=== PATIENT | female | born 1975 ===

== ENCOUNTER 2017-03-22 17:22 | Emergency (ER) | payer SELFPAY ==
[2017-03-22 17:43] VITALS: BP 106/58
--- NOTE | 2017-03-22 19:05 | UC ---
Hollie Dowling Gabriel, scribed for Jesika Azevedo MD on 03/22/17 at 1817 . General HPI - HPI Summary HPI Summary: This patient is a 41 year old F presenting to [facility] with a chief complaint of a general illness that began 2 weeks ago but has gotten worse recently. Originally she reports a fever, body aches, and a productive cough. Pt states she thinks she had the flu. Pt states since this time has had progressive bilateral ear pain, sore throat, yellow nasal discharge, and a nonproductive cough. The patient rates the pain 6/10 in severity. She has had positive exposure to sick children but their symptoms have resolved. Pt states has tried homeopathic treatments without improvement. Pt took Motrin last night with improvement last night. No other OTC meds. Her LNMP began on 02/28/17. She took ibuprofen last night before bed. Pt's medication reviewed this visit - History of Current Complaint Chief Complaint: UCGeneralIllness Stated Complaint: COUGH,ST,EAR PAIN Time Seen by Provider: 03/22/17 17:44 Hx Obtained From: Patient Hx Last Menstrual Period: 02/28/17 Onset/Duration: Lasting Days - worse in last 3 days, Lasting Weeks - 2 Timing: Constant Onset Severity: Moderate Current Severity: Mild Pain Intensity: 6 Pain Location at: ear and throat Associated Signs & Symptoms: Positive: Fever, Other - bilateral ear pain, sore throat, yellow nasal discharge, and a nonproductive cough - Allergy/Home Medications Allergies/Adverse Reactions: Allergies Allergy/AdvReac Type Severity Reaction Status Date / Time Iodine Allergy Anaphylatic Verified 03/22/17 17:33 Shock Povidone Iodine Allergy Hives Verified 03/22/17 17:33 [From Betadine] PMH/Surg Hx/FS Hx/Imm Hx Previously Healthy: Yes Other History Of: Negative For: HIV, Hepatitis B, Hepatitis C - Surgical History Surgical History: Yes Surgery Procedure, Year, and Place: tubal ligation 2005. ganglion cysts removal - Family History Known Family History: Negative: Hypertension, Diabetes, Renal Disease, Respiratory Disease, Seizure Disorder - Social History Occupation: Employed Full-time Lives: With Family Alcohol Use: Weekly Substance Use Type: None Smoking Status (MU): Never Smoked Tobacco - Immunization History Most Recent Influenza Vaccination: never Review of Systems Constitutional: Fever - that has resolved ENT: Sore Throat, Ear Ache, Nasal Discharge - yellow Respiratory: Cough Musculoskeletal: Myalgia - that has resolved All Other Systems Reviewed And Are Negative: Yes Physical Exam Triage Information Reviewed: Yes Appearance: Well-Appearing, No Pain Distress, Well-Nourished Vital Signs: Initial Vital Signs Temp 98.8 F 03/22/17 17:34 Pulse 58 03/22/17 17:34 Resp 18 03/22/17 17:34 BP 106/58 03/22/17 17:34 Pulse Ox 100 03/22/17 17:34 Vital Signs Reviewed: Yes Eye Exam: Normal Eyes: Positive: Conjunctiva Clear ENT Exam: Normal ENT: Positive: Hearing grossly normal, Nasal congestion, Other - fluid left ear. no erythema no retractions. turbinates inflammed and boggy + PND uvula midline no erythema, no exudate Neck exam: Normal Neck: Positive: Supple, Nontender Respiratory Exam: Normal Respiratory: Positive: Chest non-tender, Lungs clear, Normal breath sounds, No respiratory distress, No accessory muscle use, Other: - mild intermittent cough Cardiovascular Exam: Normal Cardiovascular: Positive: RRR, No Murmur Abdominal Exam: Normal Abdomen Description: Positive: Nontender, No Organomegaly, Soft Bowel Sounds: Positive: Present Musculoskeletal Exam: Normal Musculoskeletal: Positive: Strength Intact Neurological Exam: Normal Neurological: Positive: Alert Psychological Exam: Normal Psychological: Positive: Normal Response To Family Skin Exam: Normal Course/Dx - Course Course Of Treatment: Pt presents with sinus congestion, progressive ear pain, and cough since likely flu 2 weeks ago. Pt has tried symptomatic tx / holistic tx without improvement. on exam pt with sinus congestion and fluid in left ear. strep neg. will give abx, cough med. secretion precaution. hydrate. motrina/apap. Pt comfortable and in agreement with plan - Differential Dx - Multi-Symptom Provider Diagnoses: sinusitis. cough Discharge - Discharge Plan Condition: Stable Disposition: HOME Prescriptions: Amoxicillin/Clavulanate TAB* [Augmentin TAB 875*] 875 mg PO BID #20 tab Guaifenesin 200 mg PO Q8HR PRN #15 tab PRN Reason: Cough Patient Education Materials: Rhinosinusitis (ED) Referrals: [facility] [Outside] No Primary Care Phys,NOPCP [Primary Care Provider] - Additional Instructions: - stay well hydrated. Drink plenty of non-alcoholic, non-caffinated beverages - Take antibiotics as prescribed until gone - you have been given prescription for cough - okay to take as prescribed - - After you have been on antibiotics for 2 days - change your toothbrush and your pillowcase. These infections are spread by secretions - do NOT share eating or drinking utensils - clean items you share with other people such as cell phones, computer mouse, TV remote, computer tablets, etc - humidify the air where you sleep - get plenty of restful sleep - Contact your doctor to schedule a follow-up appointment. Contact your doctor or return with questions or concerns The documentation as recorded by the Hollie chew Gabriel accurately reflects the service I personally performed and the decisions made by me, Jesika Azevedo MD.
== END 2017-03-22 18:32 | disposition home or self-care (01) ==
LOC: UCEAST 17:22
DX: J32.9 Chronic sinusitis, unspecified (principal); R05 Cough; H92.03 Otalgia, bilateral; J02.9 Acute pharyngitis, unspecified
CPT/HCPCS: 87651; 99212; G0463

== ENCOUNTER 2018-04-14 10:58 | Emergency (ER) | payer OTHER ==
[2018-04-14 11:05] VITALS: BP 124/63
--- NOTE | 2018-04-14 11:24 | UC ---
Respiratory Complaint HPI - HPI Summary HPI Summary: 1 WEEK OF COUGH, CONGESTION, MALAISE AND SCRATCHY THROAT. DENIES FEVER, NAUSEA/ VOMITING OR EAR PAIN. HAS BEEN USING HERBAL TREATMENTS WITH NO IMPROVEMENT IN SYMPTOMS. STATES SHE GETS IT EVERY MARCH. - History of Current Complaint Chief Complaint: UCRespiratory Stated Complaint: URI Time Seen by Provider: 04/14/18 11:03 Hx Obtained From: Patient Hx Last Menstrual Period: 04/03/18 Onset/Duration: Gradual Onset, Lasting Days, Still Present Timing: Constant Severity Initially: Moderate Severity Currently: Moderate Pain Intensity: 5 Pain Scale Used: 0-10 Numeric Character: Cough: Nonproductive Aggravating Factors: Nothing Alleviating Factors: Nothing Associated Signs And Symptoms: Positive: URI, Nasal Congestion. Negative: Dyspnea, Fever, Chills, Wheezing - Allergies/Home Medications Allergies/Adverse Reactions: Allergies Allergy/AdvReac Type Severity Reaction Status Date / Time Iodine and Iodide Containing Allergy Hives Verified 04/14/18 11:05 Produc povidone-iodine Allergy Hives Verified 04/14/18 11:05 [From Betadine] soap [From Betadine] Allergy Hives Verified 04/14/18 11:05 PMH/Surg Hx/FS Hx/Imm Hx Respiratory History: Asthma Other History Of: Negative For: HIV, Hepatitis B, Hepatitis C - Surgical History Surgical History: Yes Surgery Procedure, Year, and Place: tubal ligation 2005. ganglion cysts removal - Family History Known Family History: Negative: Hypertension, Diabetes, Renal Disease, Respiratory Disease, Seizure Disorder - Social History Alcohol Use: Weekly Substance Use Type: None Smoking Status (MU): Never Smoked Tobacco - Immunization History Most Recent Influenza Vaccination: never Review of Systems All Other Systems Reviewed And Are Negative: Yes Constitutional: Positive: Fatigue ENT: Positive: Sore Throat, Nasal Discharge Respiratory: Positive: Cough Cardiovascular: Positive: Negative Gastrointestinal: Positive: Negative Physical Exam Triage Information Reviewed: Yes Appearance: Well-Appearing, No Pain Distress, Well-Nourished Vital Signs: Initial Vital Signs Temp 98.1 F 04/14/18 11:01 Pulse 72 04/14/18 11:01 Resp 16 04/14/18 11:01 BP 124/63 04/14/18 11:01 Pulse Ox 100 04/14/18 11:01 Vital Signs Reviewed: Yes Eyes: Positive: Conjunctiva Clear ENT: Positive: Hearing grossly normal, Pharynx normal, TMs normal Neck: Positive: Supple, Nontender, No Lymphadenopathy Respiratory Exam: Normal Cardiovascular Exam: Normal Abdomen Description: Positive: Soft Musculoskeletal: Positive: No Edema Neurological: Positive: Alert Psychological: Positive: Age Appropriate Behavior Skin: Positive: Other - Cluster of spider veins right camp with some surrounding discoloration. Not tender. Slightly flaky. Diagnostic Evaluation - Laboratory O2 Sat by Pulse Oximetry: 100 Respiratory Course/Dx - Course Course Of Treatment: LIKELY VIRAL ETIOLOGY OF UPPER RESPIRATORY SYMPTOMS. DISCUSSED WITH PATIENT THAT ANTIBIOTICS ARE NOT INDICATED AT THIS TIME. PATIENT REQUESTING AN ANTIBIOTIC THAT SHE CAN TAKE LATER IF SHE DOES NOT IMPROVE. PEYMAN SENT TO PHARMACY. 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 SHE IS REQUESTING DERMATOLOGY REFERRAL. - Differential Dx/Diagnosis Provider Diagnosis: Acute URI Discharge - Sign-Out/Discharge Documenting (check all that apply): Patient Departure All imaging exams completed and their final reports reviewed: No Studies - Discharge Plan Condition: Stable Disposition: HOME Prescriptions: Azithromycin 500 mg PO DAILY #5 tab Patient Education Materials: Upper Respiratory Infection (ED) Forms: *Work Release Referrals: [facility] [Outside] - If Needed Additional Instructions: YOUR SYMPTOMS ARE LIKELY VIRALLY MEDIATED AND SHOULD RESOLVE ON THEIR OWN WITH TIME. NO INDICATION FOR ANTIBIOTICS AT PRESENT. REST, HYDRATE, OTC MEDS NEEDED. IF YOU ARE NOT IMPROVING OVER THE NEXT 1-2 WEEKS GO AHEAD AND FILL RX FOR ANTIBIOTIC. IF YOU START THE MEDICINE TAKE IT FOR THE FULL COURSE TO HELP PREVENT DEVELOPING RESISTANCE. CALL THE NUMBER BELOW FOR ASSISTANCE IN ESTABLISHING WITH A PCP An additional resource available to assist in finding the appropriate physician for your health care needs is the [facility] Referral Center (Kiki Stewart). You may contact them by calling [phone]. DERMATOLOGY IN [place] DR. PK CHIANG [facility], [facility] [address]; [address] [place] [address] Dr. Kalyn Childs Address: [address] [place] [address] [address] [place] [address] DR. SOCO GARCIA [facility] [address] [place], [place] [id number] DERMATOLOGY IN [place] Dr. Kia Garcia DERMATOLOGY IN [place] DR. THONY LADD [phone] - [facility] Disposition and Condition Condition: STABLE Disposition: Home
== END 2018-04-14 11:25 | disposition home or self-care (01) ==
LOC: UCEAST 10:58
DX: J06.9 Acute upper respiratory infection, unspecified (principal); J45.909 Unspecified asthma, uncomplicated; Z88.8 Allergy status to other drugs, medicaments and biological substances
CPT/HCPCS: 99212; G0463

== ENCOUNTER 2019-07-05 08:42 | Emergency (ER) | payer OTHER ==
[2019-07-05 09:03] VITALS: BP 102/54
--- NOTE | 2019-07-05 10:36 | UC ---
Abdominal Pain Female HPI - HPI Summary HPI Summary: 43-year-old woman comes in with a chief complaint of lower abdominal pain. This morning she experienced about 20 minutes of 8-9 out of 10 suprapubic pain while still lying in bed. Now the pain is about a 1 out of 10. No fevers measured. Patient's last menstrual period was 2 weeks ago. Denies any abnormal vaginal discharge or concern of STI. Urination has been normal. Has not had any flank pain. Patient has had a tubal ligation in the past no other abdominal surgeries. Reports normal bowel movements. Patient's periods have been irregular over the last couple of years. Her last period 2 weeks ago was tobacco sweeper than usual.. Prior to that is 3-4 weeks prior to the last period was longer and heavier than usual and more painful than usual. Patient has had intermittent sore throat and generalized joint aches for several weeks. Reports the sore throat is mild. Rhinorrhea is clear. No cough or chest congestion or shortness of breath. Patient reports a negative Covid test about one week ago. Last several weeks her appetite has been less which she believes is due to stress. 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 She did have a tick bite about one week ago on her left hip. She believes the tick was only attached for couple of hours. No rash. Patient has been having intermittent left lower and right lower quadrant pelvic pain but usually only last a minute or 2 are not as severe as this morning's intensity. - History of Current Complaint Chief Complaint: UCAbdominalPain Stated Complaint: LOWER ABDOMINAL PAIN Time Seen by Provider: 07/05/19 08:58 Hx Last Menstrual Period: two weeks ago, light Pain Intensity: 1 Allergies/Adverse Reactions: Allergies Allergy/AdvReac Type Severity Reaction Status Date / Time Iodine and Iodide Containing Allergy Hives Verified 07/05/19 08:54 Produc mold Allergy Airway Verified 07/05/19 08:54 Obstruction povidone-iodine Allergy Hives Verified 07/05/19 08:54 [From Betadine] soap [From Betadine] Allergy Hives Verified 07/05/19 08:54 pet dander Allergy Difficulty Uncoded 07/05/19 08:54 Breathing Home Medications: Home Medications Calcium Carbonate [Calcium] 1 tab PO DAILY 07/05/19 [History Confirmed 07/05/19] Cholecalciferol (Vitamin D3) [Vitamin D3] 1 tab PO DAILY 07/05/19 [History Confirmed 07/05/19] Ferrous Sulfate TAB* 1 tab PO BID 07/05/19 [History Confirmed 07/05/19] Ibuprofen 200 mg PO ONCE PRN 07/05/19 [History Confirmed 07/05/19] Magnesium 1 tab PO DAILY 07/05/19 [History Confirmed 07/05/19] Vitamin B Complex [Super B-50 Complex] 1 tab PO DAILY 07/05/19 [History Confirmed 07/05/19] PMH/Surg Hx/FS Hx/Imm Hx Previously Healthy: Yes Other History Of: Negative For: HIV, Hepatitis B, Hepatitis C - Surgical History Surgical History: Yes Surgery Procedure, Year, and Place: tubal ligation 2005. ganglion cysts removal - Family History Known Family History: Negative: Hypertension, Diabetes, Renal Disease, Respiratory Disease, Seizure Disorder - Social History Alcohol Use: Weekly Substance Use Type: None Smoking Status (MU): Never Smoked Tobacco - Immunization History Most Recent Influenza Vaccination: never Review of Systems All Other Systems Reviewed And Are Negative: Yes Constitutional: Positive: Other - SEE HPI Skin: Positive: Other - SEE HPI Eyes: Positive: Negative ENT: Positive: Sore Throat Respiratory: Positive: Negative Cardiovascular: Positive: Negative Gastrointestinal: Positive: Abdominal Pain - SEE HPI Genitourinary: Positive: Negative Motor: Positive: Negative Neurovascular: Positive: Negative Musculoskeletal: Positive: Other: - SEE HPI Neurological/Mental Status: Positive: Negative Psychological: Positive: Negative Is Patient Immunocompromised?: No Physical Exam Triage Information Reviewed: Yes Appearance: Well-Appearing, No Pain Distress, Well-Nourished Vital Signs: Initial Vital Signs Temp 99.5 F 07/05/19 08:48 Pulse 68 07/05/19 08:48 Resp 18 07/05/19 08:48 BP 102/54 07/05/19 08:48 Pulse Ox 97 07/05/19 08:48 Vital Signs Reviewed: Yes Eye Exam: Normal Eyes: Positive: Conjunctiva Clear ENT: Positive: Pharynx normal Neck: Positive: Supple Respiratory: Positive: Lungs clear, Normal breath sounds, No respiratory distress Cardiovascular: Positive: RRR Abdomen Description: Positive: Other: - Negative heel strike. Mild increase in the suprapubic pain with flexion of the right hip with internal rotation. Positive bowel sounds. Mild tenderness to palpation right lower quadrant and left lower quadrant and the patient reports that that increases the pain in the suprapubic area. Patient is tender to palpation in the suprapubic area. Nontender in the right upper quadrant left upper quadrant or epigastrium. Bowel Sounds: Positive: Present Musculoskeletal: Positive: Strength Intact, ROM Intact Neurological: Positive: Alert, Muscle Tone Normal Psychological: Positive: Age Appropriate Behavior Skin Exam: Normal - On the left hip where the tick bite was there is no rash. Abd Pain Female Course/Dx - Course Course Of Treatment: Vamp Seamer: Ravindra Mata Daniel ([id number]) Crowd Controller: CARLIN ( NUANCE) Report Date: 07/05/2019 11:13:00 Report Status: Final ====== Start of Report Content Patient Name: PK EARL Ordering Physician: David Campo MD : 1975 Age: 43 Sex: F Location: [facility] Exam Date: 0935 ADM Status: REG ER Observation Date/Time: Order Information: US PELVIC Accession Number: [id number] CPT: 19112 HISTORY: suprapubic pain COMPARISONS: August 29, 2018 TECHNIQUE: Multiple transverse and longitudinal ultrasound images were obtained of the pelvis using grayscale, color Doppler, and spectral Doppler imaging using the transabdominal transducer. FINDINGS: UTERUS: The uterus measures 9.8 cm x 4.5 cm x 6.0 cm. The uterus is normal in shape, size, contour, and echotexture. ENDOMETRIUM: The endometrial stripe is smooth. The endometrium measures 1.3 cm in thickness. CUL-DE-SAC: There is a small amount of simple fluid within the cul-de-sac. This may be physiologic in a reproductive age female. RIGHT OVARY: The right ovary measures 2.6 cm x 3.3 cm x 4.9 cm. Normal arterial and venous waveforms are identifiable within the ovary on spectral Doppler imaging. There is a 3.3 x 1.4 x 2.4 cm echogenic cystic lesion LEFT OVARY: The left ovary measures 2.2 cm x 2.6 cm x 3.3 cm. Multiple follicles noted. Normal arterial and venous waveforms are identifiable within the ovary on spectral Doppler imaging. BLADDER: The visualized bladder is unremarkable. OTHER: None IMPRESSION: 1. SMALL AMOUNT OF FREE FLUID WITHIN THE CUL-DE-SAC. THIS MAY BE PHYSIOLOGIC WITHIN A REPRODUCTIVE AGE FEMALE. 2. ECHOGENIC CYSTIC LESION OF THE RIGHT OVARY MEASURING 3.3 CM. THE DIFFERENTIAL INCLUDES A HEMORRHAGIC CYST. RECOMMEND FOLLOW-UP IMAGING IN 6 WEEKS-12 WEEKS TO DOCUMENT RESOLUTION. 3. NO SONOGRAPHIC FEATURES OF TORSION. PLEASE NOTE THAT PARTIAL OR INTERMITTENT TORSION MAY BE SONOGRAPHICALLY NORMAL. . <Electronically signed by Ravindra Mata MD in OV> 07/05/19 110 Dictated By: Ravindra Mata MD Dictated Date/Time: 07/05/191106 Transcribed Date/Time: 07/05/191106 Copy to: CC:Ravindra Mata MD; No Primary Care Phys,NOPCP ; David Campo MD Imaging - [facility] Imaging - [facility] Imaging - [facility] [address] [address] ph ([phone]) ph ([phone]) ph ) End of Report Content Vamp Seamer: Ravindra Mata Daniel, ([id number]) Crowd Controller: CARLIN ( NUANCE) Report Date: 07/05/2019 11:07:00 Report Status: Final ====== Start of Report Content Patient Name: PK EARL Ordering Physician: David Campo MD : 1975 Age: 43 Sex: F Location: [facility] Exam Date: 35 ADM Status: REG ER Observation Date/Time: Order Information: US APPENDIX Accession Number: [id number] CPT: 63367 HISTORY: suprapubic pain COMPARISONS: None TECHNIQUE: Multiple transverse and longitudinal ultrasound images were obtained of the right lower quadrant using grayscale and color Doppler imaging. FINDINGS: The appendix is not visualized. There is a small amount of simple fluid noted within the pelvic cul-de-sac and right lower quadrant. There are no loculated fluid collections. IMPRESSION: THE APPENDIX IS NOT VISUALIZED. THERE IS A SMALL AMOUNT OF FREE FLUID WITHIN THE PELVIS WITHOUT LOCULATED FLUID COLLECTION. <Electronically signed by Ravindra Mata MD in OV> 07/05/19 110 Dictated By: Ravindra Mata MD Dictated Date/Time: 07/05/191101 Transcribed Date/Time: 07/05/191101 Copy to: CC:Ravindra Mata MD; No Primary Care Phys,NOPCP ; David Campo MD Imaging - [facility] Imaging - [facility] [address] [address] [place] [address] ph ([phone]) ph ([phone]) ph ([phone]) End of Report Content I discussed the ultrasound and the urine results and vital signs with the patient. After the patient had her Off recheck of temperature was 98.5. Patient reports she is pain free at the end of our visit. Patient did have a trace of blood in the urine and does have a right ovarian cysts which is possibly hemorrhagic cyst. Recommendation is to have the repeat ultrasound in 6 -12 weeks. [facility] has [facility] past and plans for follow [facility] with [facility] for [facility]. Also gave her a referral to [facility]. I discussed hemorrhagic cyst and ovarian torsion and the signs and symptoms of appendicitis with the patient. With no fever vital signs stable and the pain gone patient will be able to follow up outpatient at this time. We discussed that if the pain returned or if fever or felt ill like passing out or any other concerns she get reevaluated the emergency department. - Differential Dx/Diagnosis Provider Diagnosis: Pelvic pain, Suprapubic pain, Right ovarian cyst Discharge ED - Sign-Out/Discharge Documenting (check all that apply): Patient Departure All imaging exams completed and their final reports reviewed: Yes - Discharge Plan Condition: Stable Disposition: HOME Patient Education Materials: Ovarian Cyst (ED), Acute Abdominal Pain (ED), Pelvic Pain in Women (ED) Referrals: [facility] [Outside] Lico Oliveira JR, DO [Doctor of Osteopathy] - [facility] [Outside] Additional Instructions: FOLLOW UP WITH OBGYN OR [facility] TO RECHECK YOUR RIGHT OVARIAN CYST. GO TO THE EMERGENCY DEPARTMENT IF WORSE; RETURN OF PAIN, FEVER, YOU FEEL LIKE PASSING,YOU FEEL ILL OUT OR ANY QUESTIONS OR CONCERNS. - Billing Disposition and Condition Condition: STABLE Disposition: Home
== END 2019-07-05 11:35 | disposition home or self-care (01) ==
LOC: UCEAST 08:42
DX: R10.2 Pelvic and perineal pain (principal); R10.30 Lower abdominal pain, unspecified; N83.201 Unspecified ovarian cyst, right side; Z88.3 Allergy status to other anti-infective agents; Z91.09 Other allergy status, other than to drugs and biological substances
CPT/HCPCS: 76705; 76856; 81003; 84702; 99211; G0463